=== PATIENT | female | born 1970 | race Caucasian/White ===

== ENCOUNTER 2019-09-20 12:17 | Observation (INO) | payer OTHER ==
[2019-09-20] MEDS ORDERED: SODIUM CHLORIDE 0.9% 1,000 ML with MVI, ADULT NO.4 WITH VIT K 10 ML, THIAMINE 100 MG, F... IV ONE ×4 (12:22)
[2019-09-20] MEDS ORDERED: SODIUM CHLORIDE 0.9% 500 ML 500 ML IV ONE (12:22)
--- NOTE | 2019-09-20 12:25 | ED ---
General Adult HPI - General Stated complaint: ETOH Time Seen by Provider: 09/20/19 12:17 Source: RN notes reviewed, old records reviewed - History of Present Illness Initial comments: This is a 48-year-old female presents emergency Department because she is intoxicated. Patient went to [facility] for rehabilitation but she was too intoxicated for them to accept so they called the family and since then to here [facility]. Patient has no complaints other than the fact she is drinking too much and she would like some help. Patient denies any chest pain difficulty breathing. Patient denies any abdominal pain patient denies nausea vomiting. Patient denies headache patient denies numbness weakness. Patient states she drinks at least a fifth of vodka a day. - Related Data Allergies Allergy/AdvReac Type Severity Reaction Status Date / Time nitrofurantoin Allergy Anaphylaxis Verified 09/20/19 12:49 [From Macrobid] phenytoin [From Dilantin] Allergy Anaphylaxis Verified 09/20/19 12:49 Sulfa (Sulfonamide Allergy Anaphylaxis Verified 09/20/19 12:49 Antibiotics) tetracycline Allergy Anaphylaxis Verified 09/20/19 12:49 Review of Systems ROS Statement: Those systems with pertinent positive or pertinent negative responses have been documented in the HPI. ROS Other: All systems not noted in ROS Statement are negative. General Exam - General Exam Comments Initial Comments: GENERAL: Patient is well-developed and well-nourished. Patient is nontoxic and well- hydrated and is intoxicated. ENT: Neck is soft and supple. No significant lymphadenopathy is noted. Oropharynx is clear. Moist mucous membranes. Neck has full range of motion without eliciting any pain. EYES: The sclera were anicteric and conjunctiva were pink and moist. Extraocular movements were intact and pupils were equal round and reactive to light. Eyelids were unremarkable. PULMONARY: Unlabored respirations. Good breath sounds bilaterally. No audible rales rhonchi or wheezing was noted. CARDIOVASCULAR: There is a regular rate and rhythm without any murmurs gallops or rubs. ABDOMEN: Soft and nontender with normal bowel sounds. SKIN: Skin is clear with no lesions or rashes and otherwise unremarkable. NEUROLOGIC: Patient is alert and oriented x3. Cranial nerves II through XII are grossly intact. Motor and sensory are also intact. Normal speech, volume and content. Symmetrical smile. MUSCULOSKELETAL: Normal extremities with adequate strength and full range of motion. LYMPHATICS: No significant lymphadenopathy is noted PSYCHIATRIC: Patient is too intoxicated to assess however she does deny any suicidal ideations. Course Vital Signs 09/20/19 12:23 Temperature 97.6 F Pulse Rate 73 Respiratory 16 Rate Blood Pressure 139/79 O2 Sat by Pulse 94 L Oximetry Medical Decision Making - Medical Decision Making I spoke with Dr. Peterson he agreed to admit the patient admitted the patient wrote admitting orders - Lab Data Result diagrams: 09/20/19 12:40 09/20/19 12:40 Lab Results 09/20/19 09/20/19 09/20/19 Range/Units 12:40 12:40 12:40 WBC 4.3 (3.8-10.6) k/uL RBC 3.86 (3.80-5.40) m/uL Hgb 13.6 (11.4-16.0) gm/dL Hct 39.5 (34.0-46.0) % MCV 102.4 H (80.0-100.0) fL MCH 35.3 H (25.0-35.0) pg MCHC 34.4 (31.0-37.0) g/dL RDW 14.1 (11.5-15.5) % Plt Count 209 (150-450) k/uL Neutrophils % 47 % Lymphocytes % 40 % Monocytes % 9 % Eosinophils % 1 % Basophils % 1 % Neutrophils # 2.0 (1.3-7.7) k/uL Lymphocytes # 1.7 (1.0-4.8) k/uL Monocytes # 0.4 (0-1.0) k/uL Eosinophils # 0.0 (0-0.7) k/uL Basophils # 0.0 (0-0.2) k/uL Macrocytosis Slight Sodium 145 (137-145) mmol/L Potassium 5.4 H (3.5-5.1) mmol/L Chloride 109 H (98-107) mmol/L Carbon Dioxide 24 (22-30) mmol/L Anion Gap 12 mmol/L BUN 17 (7-17) mg/dL Creatinine 0.76 (0.52-1.04) mg/dL Est GFR (CKD-EPI)AfAm >90 (>60 ml/min/1.73 sqM) Est GFR (CKD-EPI)NonAf >90 (>60 ml/min/1.73 sqM) Glucose 113 H (74-99) mg/dL Calcium 9.4 (8.4-10.2) mg/dL Total Bilirubin 0.6 (0.2-1.3) mg/dL AST 313 H (14-36) U/L ALT 224 H (9-52) U/L Alkaline Phosphatase 136 H (38-126) U/L NT-Pro-B Natriuret Pep 29 pg/mL Total Protein 8.8 H (6.3-8.2) g/dL Albumin 4.8 (3.5-5.0) g/dL Serum Alcohol 367 H* mg/dL Disposition Clinical Impression: Alcoholic intoxication Disposition: ADMITTED IP TO THIS HOSP Referrals: Nonstaff,Physician [Primary Care Provider] - 1-2 days Time of Disposition: 13:44
[2019-09-20 12:55] LABS: Basophils % (A) 1 %; Eosinophils % (A) 1 %; HCT 39.5 % (34.0-46.0); HGB 13.6 gm/dL (11.4-16.0); Lymphocytes # (A) 1.7 k/uL (1.0-4.8); Lymphocytes % (A) 40 %; MCH 35.3 pg (25.0-35.0); MCHC 34.4 g/dL (31.0-37.0); MCV 102.4 fL (80.0-100.0); Macrocytosis Slight; Mean Platelet Volume 5.5; Monocytes # (A) 0.4 k/uL (0-1.0); Monocytes % (A) 9 %; Neutrophils % (A) 47 %; Platelet Count 209 k/uL (150-450); RBC 3.86 m/uL (3.80-5.40); RDW 14.1 % (11.5-15.5); WBC 4.3 k/uL (3.8-10.6)
[2019-09-20 13:11] LABS: African American GFR (CKD) >90 (>60 ml/min/1.73 sqM); Albumin 4.8 g/dL (3.5-5.0); Anion Gap 12 mmol/L; Blood Urea Nitrogen 17 mg/dL (7-17); Calcium 9.4 mg/dL (8.4-10.2); Carbon Dioxide 24 mmol/L (22-30); Chloride 109 mmol/L (98-107); Glucose 113 mg/dL (74-99); Non-African American GFR(CKD) >90 (>60 ml/min/1.73 sqM); Sodium 145 mmol/L (137-145); Total Bilirubin 0.6 mg/dL (0.2-1.3); Total Protein 8.8 g/dL (6.3-8.2)
[2019-09-20 13:23] LABS: ALT 224 U/L (9-52); AST 313 U/L (14-36); Alcohol 367 mg/dL; Potassium 5.4 mmol/L (3.5-5.1)
[2019-09-20 13:24] LABS: Alkaline Phosphatase 136 U/L (38-126)
[2019-09-20] MEDS ORDERED: LORazepam 2 MG/ML INJ IV PRN (13:44)
[2019-09-20] MEDS ORDERED: THIAMINE 100 MG/ML 2 ML VIAL IM STA (13:44)
[2019-09-20] MEDS ORDERED: SODIUM CHLORIDE 0.9% 1,000 ML IV ONE (13:45)
[2019-09-20] MEDS ORDERED: IBUPROFEN 600 MG TAB PO PRN (14:33)
[2019-09-20] MEDS ORDERED: TEMAZEPAM 15 MG CAP PO PRN ×2 (14:34→15:48)
[2019-09-20 15:14] LABS: Prothrombin Time 10.3 sec (9.0-12.0)
[2019-09-20] MEDS: LORazepam 2 MG/ML INJ IV PRN ×2 (16:01→19:55)
[2019-09-20] MEDS ORDERED: INFLUENZA VACCINE (6 MOS+) 60 MCG/0.5 ML SYRINGE IM ONE (16:07)
[2019-09-20] MEDS ORDERED: PNEUMOCOCCAL VACC-PNEUMOVAX 23 25 MCG/0.5 ML VIAL IM ONE (16:07)
[2019-09-20] MEDS: THIAMINE 100 MG TAB PO SCH (16:35)
--- NOTE | 2019-09-20 16:42 | XR ---
EXAMINATION TYPE: XR chest 1V portable DATE OF EXAM: 09/20/2019 COMPARISON: NONE HISTORY: Heart failure Short of breath TECHNIQUE: Single frontal view of the chest is obtained. FINDINGS: Heart and mediastinum are normal. Lungs are clear. Diaphragm is normal. Bony thorax appear s normal. IMPRESSION: Normal chest. No heart failure.
--- NOTE | 2019-09-20 17:02 | HP ---
HISTORY AND PHYSICAL DATE OF SERVICE: 09/20/2019 CHIEF COMPLAINT: Alcohol intoxication. HISTORY OF PRESENT ILLNESS: This 48-year-old woman with a past medical history of multiple medical problems including C difficile, history of stroke, history of EtOH, history of nicotine dependence, being followed by primary physician in the [place] area apparently was followed by a physician in the [facility] system. The patient apparently was taken to [facility] for alcohol rehab, but however, because the patient was toxic, the patient was referred to [facility] and admitted for further evaluation and treatment. Initial alcohol level was found to be 367. AST and ALT was elevated indicating alcoholic hepatitis. The patient also had significant medical history including history of multiple hospital admissions and one admission associated with stroke during which time the patient had multiple complications including pneumonia, apparent sepsis, C difficile colitis, and the patient was in the hospital for several weeks according the family who with the patient lives. The patient also has history of brain surgery and AVM removal as well. There is no history of fever, rigors or chills. No history of headache, loss of consciousness or seizures at this time. The patient is currently conscious, but slightly tremulous. Patient also has history of previous DTs also. The patient is complaining of severe diffuse aches and pains at this time. PAST MEDICAL HISTORY: History of alcohol intake, history of brain surgery, CVA, DTs. MEDICATIONS: Home medications are: 1. Risperdal 2 mg p.o. daily. 2. Trokendi that is Topramide 50 mg p.o. daily. 3. Nicotine 14 daily. 4. Motrin 600 mg q.8h p.r.n. 5. Lopressor 50 mg p.o. b.i.d. 6. Vimpat 100 mg p.o. b.i.d. 7. Pepcid 20 mg p.o. b.i.d. 8. Lexapro 10 mg p.o. daily. 9. Vitamin B1 100 mg p.o. daily. 10. vitamins 1 p.o. daily. 11.Klor-Con 20 mEq p.o. b.i.d. 12.Magnesium oxide 400 mg p.o. b.i.d. 13.Folic acid 1 mg p.o. daily. ALLERGIES: ABILIFY, CIPRO, REGLAN, MORPHINE, MACROBID, DILANTIN, SULFONAMIDES, TETRACYCLINE. FAMILY HISTORY: No history of heart disease or strokes in the family. SOCIAL HISTORY: History of smoking and alcohol as mentioned earlier. REVIEW OF SYSTEMS: ENT: No diminished vision. No diminished hearing. CARDIOVASCULAR system: No angina or palpitations. RESPIRATORY: No cough. GI no nausea or vomiting. no dysuria. NERVOUS SYSTEM: As mentioned earlier. ALLERGY/IMMUNOLOGY: No asthma or hayfever. MUSCULOSKELETAL as mentioned earlier. HEMATOLOGY/ONCOLOGY: No history of anemia. ENDOCRINE: No history of diabetes or hypothyroidism. CONSTITUTIONAL: As mentioned earlier. DERMATOLOGY: Negative. RHEUMATOLOGY: Negative. PSYCHIATRY: As mentioned earlier. PHYSICAL EXAMINATION: GENERAL: The patient is alert and oriented times three. VITAL SIGNS: Pulse 81, blood pressure 112/71, respiration 16, temperature 97.6, pulse ox 96% on room air. HEENT is conjunctivae normal. Oral mucosa moist. NECK is no jugular venous distention. No carotid bruit. No lymph node enlargement. Cardiovascular: S1, S2 muffled. No S3, no S4. RESPIRATORY: Breath sounds diminished in the bases. No rhonchi. No crackles. ABDOMEN: Soft, nontender. No mass palpable. LEGS: No edema. No swelling. NERVOUS SYSTEM: Higher functions as mentioned. Moves all 4 limbs. Mild diffuse weakness. LYMPHATICS: No lymph nodes palpable in the neck, axillae or groin. JOINTS no active deforming arthropathy. LABS: At this time shows WBC 4.2, hemoglobin 13.2, MCV 102.4, potassium 5.4, glucose 113. AST is 313, ALT is 224, alkaline phosphatase 136 and alcohol is 367. ASSESSMENT: 1. Acute alcohol intoxication. 2. Possible early delirium tremens acute. 3. Elevated AST and ALT, possibly alcoholic hepatitis. 4. Mild hyperkalemia. 5. Increased MCV. 6. History of strokes previously. 7. History of AVM and surgery. 8. History of sepsis, pneumonia and C difficile previously. 9. History of seizure disorder. 10.History of nicotine dependence continued ongoing. 11.History of ETOH. RECOMMENDATIONS AND DISCUSSION: In this 48 -year-old woman who presented with multiple complex medical issues, we will monitor the patient closely, continue the current medications, management and symptomatic treatment. We will initiate home medications. Otherwise, I would recommend CIWA protocol. I would also recommend DT precautions and seizure precautions as well. Other than that, p.r.n. Ativan may be given as part of the CIWA protocol and symptomatic treatment. DVT prophylaxis. Once the patient is stable, we will send the patient back to [facility] re[facility]. At this time, otherwise, overall prognosis guarded because of multiple complex medical issues. Further recommendations to follow. See orders for further details. We will also obtain old records from the other hospital where the patient had multiple complications as well. as well. We will continue to monitor. See orders for details. Symptomatic treatment with pain medications also recommended. MMODL / IJN: [id number] / MTDD
[2019-09-20] MEDS: KETOROLAC 30 MG/ML 1 ML VIAL IVP SCH (19:41)
[2019-09-20 20:35] LABS: Appearance,Urine Clear (Clear); Bilirubin,Urine Negative (Negative); Blood,Urine Negative (Negative); Color,Urine Light Yellow; Glucose,Urine (UA) Negative (Negative); Ketones,Urine Negative (Negative); Leukocyte Esterase,Urine Negative (Negative); Nitrite,Urine Negative (Negative); Protein,Urine Negative (Negative); Specific Gravity,Urine 1.011 (1.001-1.035); Urobilinogen,Urine <2.0 mg/dL (<2.0)
[2019-09-20] MEDS: FAMOTIDINE 20 MG TAB PO SCH (21:22)
[2019-09-20] MEDS: MAGNESIUM OXIDE 400 MG TAB PO SCH (21:22)
[2019-09-20] MEDS: POTASSIUM CHLORIDE ER 20 MEQ TAB.ER PO SCH (21:22)
[2019-09-20] MEDS: METOPROLOL TARTRATE 50 MG TAB PO SCH (21:22)
[2019-09-20] MEDS: HEPARIN SODIUM,PORCINE 5,000 UNIT/ML 1 ML VIAL SQ SCH (21:22)
[2019-09-20] MEDS: LACOSAMIDE 50 MG TABLET PO SCH (21:26)
[2019-09-21] MEDS ORDERED: LORazepam 2 MG/ML INJ ONE (03:54)
[2019-09-21] MEDS ORDERED: KETOROLAC 30 MG/ML 1 ML VIAL ONE (03:54)
[2019-09-21] MEDS: KETOROLAC 30 MG/ML 1 ML VIAL IVP SCH (05:41)
[2019-09-21] MEDS: LORazepam 2 MG/ML INJ IV PRN ×6 (07:53→23:21)
[2019-09-21] MEDS: NICOTINE 14MG/24HR PATCH TRANSDERM SCH (07:53)
[2019-09-21] MEDS: FAMOTIDINE 20 MG TAB PO SCH ×2 (07:55→21:28)
[2019-09-21] MEDS: THIAMINE 100 MG TAB PO SCH ×2 (07:55→16:38)
[2019-09-21] MEDS: METOPROLOL TARTRATE 50 MG TAB PO SCH ×2 (07:55→21:28)
[2019-09-21] MEDS: MAGNESIUM OXIDE 400 MG TAB PO SCH ×2 (07:55→21:28)
[2019-09-21] MEDS: HEPARIN SODIUM,PORCINE 5,000 UNIT/ML 1 ML VIAL SQ SCH ×2 (07:55→21:27)
[2019-09-21] MEDS: ESCITALOPRAM 10 MG TAB PO SCH (07:56)
[2019-09-21] MEDS: POTASSIUM CHLORIDE ER 20 MEQ TAB.ER PO SCH ×2 (07:56→21:27)
[2019-09-21] MEDS: TOPIRAMATE 25 MG TAB PO SCH ×2 (07:56→21:27)
[2019-09-21] MEDS: PANTOPRAZOLE 40 MG TABLET PO SCH (07:56)
[2019-09-21] MEDS: LACOSAMIDE 50 MG TABLET PO SCH ×2 (07:56→21:30)
[2019-09-21] MEDS: risperiDONE 2 MG TAB PO SCH (07:57)
[2019-09-21 13:18] LABS: Basophils % (A) 1 %; Eosinophils % (A) 1 %; HCT 41.1 % (34.0-46.0); HGB 13.8 gm/dL (11.4-16.0); Lymphocytes % (A) 26 %; MCH 34.5 pg (25.0-35.0); MCHC 33.5 g/dL (31.0-37.0); MCV 102.9 fL (80.0-100.0); Macrocytosis Slight; Mean Platelet Volume 6.7; Monocytes # (A) 0.3 k/uL (0-1.0); Monocytes % (A) 8 %; Neutrophils # (A) 2.4 k/uL (1.3-7.7); Neutrophils % (A) 62 %; Platelet Count 161 k/uL (150-450); RDW 13.9 % (11.5-15.5); WBC 3.8 k/uL (3.8-10.6)
[2019-09-21 13:45] LABS: ALT 186 U/L (9-52); AST 230 U/L (14-36); African American GFR (CKD) >90 (>60 ml/min/1.73 sqM); Albumin 4.1 g/dL (3.5-5.0); Alkaline Phosphatase 96 U/L (38-126); Anion Gap 8 mmol/L; Blood Urea Nitrogen 16 mg/dL (7-17); Calcium 9.1 mg/dL (8.4-10.2); Carbon Dioxide 22 mmol/L (22-30); Chloride 109 mmol/L (98-107); Glucose 91 mg/dL (74-99); Non-African American GFR(CKD) >90 (>60 ml/min/1.73 sqM); Potassium 4.1 mmol/L (3.5-5.1); Sodium 139 mmol/L (137-145); Total Protein 7.5 g/dL (6.3-8.2)
[2019-09-21] MEDS: KETOROLAC 30 MG/ML 1 ML VIAL IVP PRN ×2 (15:31→21:28)
--- NOTE | 2019-09-21 18:55 | PN ---
PROGRESS NOTE DATE OF SERVICE: 09/21/2019 This 48-year-old woman admitted with alcohol intoxication has active withdrawal symptoms at this time. Apparently the patient had total health care and the patient is to be transferred elsewhere, but at this point the patient is not stable enough for transfer. The patient apparently had been checked into [facility], which is a local rehab facility. The patient is being closely monitored. The patient is on [facility] protocol. Past medical history reviewed. Review of systems could not be taken; the patient is confused. CURRENT MEDICATIONS: Reviewed. They include: 1. Lexapro 10 mg daily. 2. Pepcid 20 mg b.i.d. 3. Heparin 5000 units subcutaneously b.i.d. 4. Toradol. 5. Vimpat. 6. Ativan. 7. Magnesium oxide. 8. Lopressor. 9. Habitrol. 10.K-Dur. 11.Restoril. 12.Vitamin B1. 13.Topamax. PHYSICAL EXAMINATION: Patient is delirious, stuporous. Pulse 85, blood pressure 144/89, respiration 18, temperature 98 degrees, pulse ox 97% on room air. HEENT: Conjunctivae normal. NECK: No jugular venous distention. CARDIOVASCULAR SYSTEM: S1, S2 muffled. RESPIRATORY SYSTEM: Breath sounds diminished at the bases. A few scattered rhonchi and crackles. Expiratory wheezing also present. ABDOMEN: Soft, non-tender. No mass palpable. LEGS: No edema. No swelling. NERVOUS SYSTEM: Higher functions as mentioned earlier. Moves all 4 limbs. No focal motor or sensory deficit. LYMPHATICS: No lymph node palpable in neck, axillae or groin. SKIN: No ulcer, rash, bleeding. JOINTS: No active deforming arthropathy. LABS: WBC 3.8, sodium 139, potassium 4.1, AST 230, ALT is 186, and alcohol level is 367. ASSESSMENT: 1. Acute alcohol intoxication, present on admission. 2. Acute delirium tremens. 3. Change in mental status, acute metabolic encephalopathy secondary to delirium tremens. 4. Increased AST and ALT, possibly alcoholic hepatitis. 5. Mild hyperkalemia. 6. Increased mean corpuscular volume. 7. History of strokes previously. 8. History of AVM and surgery. 9. History of sepsis, pneumonia, Clostridium difficile previously. 10.History of seizure disorder. 11.History of nicotine dependence, continued, ongoing. 12.History of ethanol. RECOMMENDATIONS AND DISCUSSION: In this 48-year-old woman who presented with multiple complex medical issues, we will monitor the patient closely, continue the current medications, continue with symptomatic treatment. Will continue with CIWA protocol. Symptomatic treatment of the pain. Continue with Ativan p.r.n. Continue with DVT prophylaxis. Continue the rest of the medications. There is no evidence of any infection currently. However, the patient's chest x-ray was reviewed and showed no acute abnormality. Will continue to monitor. Further recommendations to follow. The patient is still confused. MMODL / IJN: [id number] /
[2019-09-22] MEDS: KETOROLAC 30 MG/ML 1 ML VIAL IVP PRN ×4 (02:43→21:40)
[2019-09-22] MEDS: LORazepam 2 MG/ML INJ IV PRN ×6 (03:27→23:42)
[2019-09-22] MEDS: NICOTINE 14MG/24HR PATCH TRANSDERM SCH (07:39)
[2019-09-22] MEDS: MAGNESIUM OXIDE 400 MG TAB PO SCH ×2 (07:40→21:41)
[2019-09-22] MEDS: PANTOPRAZOLE 40 MG TABLET PO SCH (07:40)
[2019-09-22] MEDS: TOPIRAMATE 25 MG TAB PO SCH ×2 (07:40→21:41)
[2019-09-22] MEDS: METOPROLOL TARTRATE 50 MG TAB PO SCH ×2 (07:40→21:41)
[2019-09-22] MEDS: ESCITALOPRAM 10 MG TAB PO SCH (07:40)
[2019-09-22] MEDS: HEPARIN SODIUM,PORCINE 5,000 UNIT/ML 1 ML VIAL SQ SCH ×2 (07:40→21:39)
[2019-09-22] MEDS: FAMOTIDINE 20 MG TAB PO SCH (07:40)
[2019-09-22] MEDS: THIAMINE 100 MG TAB PO SCH ×2 (07:40→16:35)
[2019-09-22] MEDS: POTASSIUM CHLORIDE ER 20 MEQ TAB.ER PO SCH ×2 (07:40→21:41)
[2019-09-22] MEDS: risperiDONE 2 MG TAB PO SCH (07:41)
[2019-09-22] MEDS: LACOSAMIDE 50 MG TABLET PO SCH ×2 (07:53→21:41)
[2019-09-22 09:38] LABS: HCT 42.1 % (34.0-46.0); HGB 14.6 gm/dL (11.4-16.0); MCH 35.4 pg (25.0-35.0); MCHC 34.7 g/dL (31.0-37.0); Macrocytosis Slight; Mean Platelet Volume 8.1; Platelet Count 138 k/uL (150-450); RBC 4.13 m/uL (3.80-5.40); WBC 3.7 k/uL (3.8-10.6)
[2019-09-22 10:05] LABS: African American GFR (CKD) >90 (>60 ml/min/1.73 sqM); Albumin 4.5 g/dL (3.5-5.0); Anion Gap 10 mmol/L; Blood Urea Nitrogen 13 mg/dL (7-17); Calcium 9.7 mg/dL (8.4-10.2); Carbon Dioxide 20 mmol/L (22-30); Chloride 108 mmol/L (98-107); Glucose 136 mg/dL (74-99); Non-African American GFR(CKD) >90 (>60 ml/min/1.73 sqM); Sodium 138 mmol/L (137-145); Total Bilirubin 1.1 mg/dL (0.2-1.3); Total Protein 8.4 g/dL (6.3-8.2)
[2019-09-22 10:20] LABS: ALT 193 U/L (9-52); AST 246 U/L (14-36); Alkaline Phosphatase 97 U/L (38-126); Potassium 4.6 mmol/L (3.5-5.1)
[2019-09-22 11:09] LABS: Basophils # (M) 0.07 k/uL (0-0.2); Eosinophils # (M) 0.15 k/uL (0-0.7); Lymphocytes # (M) 0.85 k/uL (1.0-4.8); Monocytes # (M) 0.19 k/uL (0-1.0); Neutrophils # (M) 2.44 k/uL (1.3-7.7); Neutrophils % (M) 66 %; Nucleated Red Blood Cells 0 /100 WBC (0-0); Total Cells Counted 100
[2019-09-22] MEDS: HALOPERIDOL LACTATE 5 MG/ML 1 ML VIAL IM PRN ×2 (11:15→21:40)
--- NOTE | 2019-09-22 19:59 | PN ---
PROGRESS NOTE DATE OF SERVICE: 09/22/2019 This 48-year-old woman who was admitted with alcohol intoxication and acute delirium tremens is combative and restless this morning. The patient has to be given Haldol at this time. The patient is being closely monitored. The patient is actively withdrawing. The LFTs are still elevated. Past medical history reviewed. REVIEW OF SYSTEMS: Review of systems could not be taken; the patient is combative and aggressive. CURRENT MEDICATIONS: Reviewed. They include: 1. Lexapro 10 mg p.o. daily. 2. Pepcid 20 mg b.i.d. 3. Haldol. 4. Toradol. 5. Vimpat. 6. Ativan. 7. Magnesium oxide. 8. Lopressor. 9. Protonix. 10.K-Dur. 11.Restoril. 12.Topamax. PHYSICAL EXAMINATION: Patient is alert, oriented x3. Pulse is 87, blood pressure 138/91, respirations 16, temperature 97.6, pulse ox 98% on room air. HEENT: Conjunctivae normal. Oral mucosa moist. NECK: No jugular venous distention. No carotid bruit. No lymph node enlargement. CARDIOVASCULAR SYSTEM: S1, S2 muffled. RESPIRATORY SYSTEM: Breath sounds diminished at the bases. A few scattered rhonchi. No crackles. ABDOMEN: Soft, non-tender. No mass palpable. LEGS: No edema. No swelling. NERVOUS SYSTEM: Full exam was not possible, but moves all 4 limbs. SKIN: No ulcer, rash, bleeding. G LABS: Labs at this time show WBC 3.7, hemoglobin 14.6, MCV 102. Sodium 138, potassium 4.6. ASSESSMENT: 1. Acute alcohol intoxication, present on admission. 2. Acute delirium tremens with combativeness and aggressiveness. 3. Change in mental status, acute metabolic encephalopathy secondary to delirium tremens. 4. Increased AST, ALT, possibly alcoholic hepatitis, present on admission. 5. Increased mean corpuscular volume. 6. History of strokes previously. 7. History of AVM and surgery. 8. History of sepsis, pneumonia, Clostridium difficile previously. 9. History of seizure disorder. 10.History of nicotine dependence, continued ongoing. 11.History of ethanol. RECOMMENDATIONS AND DISCUSSION: In this 48-year-old woman who presented with multiple medical issues, we will monitor the patient closely, continue the current medications, continue with symptomatic treatment. I would recommend adding IM Haldol and continue with CIWA protocol aggressively. Ativan p.r.n. Continue the rest of the medications. The patient does not have any evidence of infection currently. I would also recommend a psychiatric consultation. Once the patient is stabilized and with normal sensorium and no evidence of any withdrawals, the patient will be sent back to [facility] for continued rehab at this time, but overall prognosis is guarded. Further recommendations to follow. MMLOSL / RON: [id number] /
[2019-09-23] MEDS: LORazepam 2 MG/ML INJ IV PRN ×4 (06:17→21:03)
[2019-09-23] MEDS: POTASSIUM CHLORIDE ER 20 MEQ TAB.ER PO SCH ×2 (09:04→21:07)
[2019-09-23] MEDS: risperiDONE 2 MG TAB PO SCH (09:05)
[2019-09-23] MEDS: TOPIRAMATE 25 MG TAB PO SCH ×2 (09:05→21:07)
[2019-09-23] MEDS: ESCITALOPRAM 10 MG TAB PO SCH (09:05)
[2019-09-23] MEDS: THIAMINE 100 MG TAB PO SCH ×2 (09:05→18:04)
[2019-09-23] MEDS: PANTOPRAZOLE 40 MG TABLET PO SCH (09:05)
[2019-09-23] MEDS: MAGNESIUM OXIDE 400 MG TAB PO SCH ×2 (09:05→21:07)
[2019-09-23] MEDS: LACOSAMIDE 50 MG TABLET PO SCH ×2 (09:05→21:07)
[2019-09-23] MEDS: METOPROLOL TARTRATE 50 MG TAB PO SCH ×2 (09:05→21:07)
[2019-09-23] MEDS: NICOTINE 14MG/24HR PATCH TRANSDERM SCH (09:05)
[2019-09-23] MEDS: HEPARIN SODIUM,PORCINE 5,000 UNIT/ML 1 ML VIAL SQ SCH ×2 (09:05→21:07)
[2019-09-23] MEDS: KETOROLAC 30 MG/ML 1 ML VIAL IVP PRN ×3 (09:53→21:05)
[2019-09-23 10:00] LABS: Basophils % (A) 0 %; Eosinophils # (A) 0.1 k/uL (0-0.7); Eosinophils % (A) 2 %; HCT 38.8 % (34.0-46.0); HGB 13.6 gm/dL (11.4-16.0); Lymphocytes # (A) 1.3 k/uL (1.0-4.8); Lymphocytes % (A) 29 %; MCHC 35.1 g/dL (31.0-37.0); MCV 102.8 fL (80.0-100.0); Macrocytosis Slight; Mean Platelet Volume 6.6; Monocytes # (A) 0.3 k/uL (0-1.0); Monocytes % (A) 7 %; Neutrophils # (A) 2.8 k/uL (1.3-7.7); Neutrophils % (A) 60 %; Platelet Count 143 k/uL (150-450); RBC 3.77 m/uL (3.80-5.40); RDW 14.5 % (11.5-15.5); WBC 4.7 k/uL (3.8-10.6)
[2019-09-23 11:45] LABS: ALT 188 U/L (9-52); AST 223 U/L (14-36); African American GFR (CKD) >90 (>60 ml/min/1.73 sqM); Albumin 3.9 g/dL (3.5-5.0); Alkaline Phosphatase 93 U/L (38-126); Anion Gap 7 mmol/L; Blood Urea Nitrogen 16 mg/dL (7-17); Calcium 9.5 mg/dL (8.4-10.2); Carbon Dioxide 21 mmol/L (22-30); Chloride 112 mmol/L (98-107); Glucose 102 mg/dL (74-99); Non-African American GFR(CKD) >90 (>60 ml/min/1.73 sqM); Potassium 4.5 mmol/L (3.5-5.1); Sodium 140 mmol/L (137-145); Total Bilirubin 0.8 mg/dL (0.2-1.3); Total Protein 7.4 g/dL (6.3-8.2)
--- NOTE | 2019-09-23 22:17 | PN ---
PROGRESS NOTE DATE OF SERVICE: 09/23/2019 This 48-year-old woman was admitted with significant alcohol intoxication, also had acute delirium tremens. The patient was combative and restless and verbally abusive yesterday. The patient was given Haldol with some relief. The patient also had macrocytosis and some mild thrombocytopenia also. LFTs are still elevated. PAST MEDICAL HISTORY: Reviewed. REVIEW OF SYSTEMS: Review of systems could not be taken because the patient is confused. CURRENT MEDICATIONS: 1. Lexapro 10 mg daily. 2. Haldol p.r.n. 3. Heparin subcu b.i.d. 4. Toradol. 5. Vimpat 100 mg b.i.d. 6. Ativan 1 mg p.r.n. 7. CIWA protocol. 8. Magnesium oxide. 9. Lopressor. 10.Habitrol. 11.Protonix. 12.K-Dur. 13.Risperdal. 14.Restoril. 15.Vitamin B1. 16.Topamax. Doses are reviewed. PHYSICAL EXAM: Patient is alert, oriented x2. Pulse 89, blood pressure 148/82, respirations 16, temperature 98.2, pulse ox 98% on room air. HEENT: Conjunctivae normal. Oral mucosa moist. NECK: No jugular venous distention. No lymph node enlargement. CARDIOVASCULAR: S1, S2. RESPIRATORY: Diminished breath sounds at the bases. No, no crackles. ABDOMEN: Soft, nontender. LEGS: No swelling. NERVOUS SYSTEM: Diffusely weak. LABS: WBC 4.7, hemoglobin 13.6 and AST is 223 and ALT is 188. ASSESSMENT: 1. Acute alcohol intoxication, present on admission. 2. Acute delirium tremens with combativeness and aggressiveness. 3. Change in mental status, acute metabolic encephalopathy secondary to delirium tremens. acute. 4. Increased AST, ALT, possibly acute alcoholic hepatitis, present on admission. 5. Increased MCV. 6. History of stroke, previous history of AVM and surgery. 7. History of sepsis, pneumonia, C difficile previously. 8. History of seizure disorder. 9. History of nicotine dependence, continued, ongoing. 10.History of EtOH. RECOMMENDATIONS AND DISCUSSION: Recommend to continue current medications, monitor and symptomatic treatment. Otherwise, continue with vitamin supplements. Continue the rest of medications. DVT prophylaxis. Guarded prognosis because of multiple complex medical issues. MMODL / IJN: [id number] /
[2019-09-24] MEDS: LORazepam 2 MG/ML INJ IV PRN ×6 (01:48→23:21)
[2019-09-24] MEDS: NICOTINE 14MG/24HR PATCH TRANSDERM SCH (08:55)
[2019-09-24] MEDS: PANTOPRAZOLE 40 MG TABLET PO SCH (08:55)
[2019-09-24] MEDS: FOLIC ACID 1 MG TAB PO SCH (08:55)
[2019-09-24] MEDS: ESCITALOPRAM 10 MG TAB PO SCH (08:55)
[2019-09-24] MEDS: POTASSIUM CHLORIDE ER 20 MEQ TAB.ER PO SCH ×2 (08:55→21:20)
[2019-09-24] MEDS: MAGNESIUM OXIDE 400 MG TAB PO SCH ×2 (08:55→21:20)
[2019-09-24] MEDS: MULTIVITAMINS, THERA 1 EACH TAB PO SCH (08:55)
[2019-09-24] MEDS: HEPARIN SODIUM,PORCINE 5,000 UNIT/ML 1 ML VIAL SQ SCH ×2 (08:55→21:21)
[2019-09-24] MEDS: METOPROLOL TARTRATE 50 MG TAB PO SCH ×2 (08:55→21:20)
[2019-09-24] MEDS: TOPIRAMATE 25 MG TAB PO SCH ×2 (08:55→21:20)
[2019-09-24] MEDS: risperiDONE 2 MG TAB PO SCH (08:55)
[2019-09-24] MEDS: THIAMINE 100 MG TAB PO SCH ×2 (08:55→17:41)
[2019-09-24] MEDS: KETOROLAC 30 MG/ML 1 ML VIAL IVP PRN ×3 (09:02→21:27)
[2019-09-24] MEDS: LACOSAMIDE 50 MG TABLET PO SCH ×2 (09:03→21:21)
--- NOTE | 2019-09-24 22:39 | PN ---
PROGRESS NOTE DATE OF SERVICE: 09/24/2019 This 48-year-old woman who was admitted with multiple medical problems, including alcohol intoxication, acute delirium tremens, has to be given multiple sedatives. The patient is still receiving Ativan at significantly high dosage. Patient's sensorium has significantly improved. Patient is slightly tremulous. The orientation is much better. No chest pain. No palpitations. No fever. PHYSICAL EXAMINATION: Alert and oriented x3. Pulse is 76, blood pressure 138/80, respiration 18, temperature 98.3, pulse ox 94% on room air. HEENT: Conjunctivae normal. NECK: No jugular venous distention. CARDIOVASCULAR SYSTEM: S1, S2 muffled. RESPIRATORY SYSTEM: Breath sounds diminished at the bases. A few scattered rhonchi. No crackles. ABDOMEN: Soft, non-tender. LEGS: No edema. No swelling. NERVOUS SYSTEM: No focal deficit. LABS: WBC 4.7, hemoglobin 13.6. Sodium 140, potassium 4.5. AST is 223 and ALT is 188. ASSESSMENT: 1. Acute alcohol intoxication, present on admission. 2. Acute delirium tremens with combativeness and aggressiveness. 3. Change in mental status, acute metabolic encephalopathy secondary to delirium tremens, acute. 4. Increased AST, ALT, possibly acute alcoholic hepatitis, present on admission. 5. Increased mean corpuscular volume. 6. History of stroke. 7. Previous history of AVM and surgery. 8. History of sepsis, pneumonia, Clostridium difficile previously. 9. History of seizure disorder. 10.History of nicotine dependence, continued ongoing. 11.History of ethanol. RECOMMENDATIONS AND DISCUSSION: I recommend to continue current medications, continue with the monitoring, symptomatic treatment. Continue with CIWA protocol and Ativan. Continue with vitamin supplementations. Once the patient is stable and able to walk more steadily and possibly participate in rehab, the patient could be discharged and sent to [facility]. Further recommendations to follow. MMODL / IJN: [id number] /
[2019-09-25] MEDS: LORazepam 2 MG/ML INJ IV PRN (03:14)
[2019-09-25] MEDS: KETOROLAC 30 MG/ML 1 ML VIAL IVP PRN ×3 (03:15→14:08)
[2019-09-25 05:30] VITALS: RESP 18
[2019-09-25] MEDS: PANTOPRAZOLE 40 MG TABLET PO SCH (07:37)
[2019-09-25] MEDS: MULTIVITAMINS, THERA 1 EACH TAB PO SCH (07:37)
[2019-09-25] MEDS: LACOSAMIDE 50 MG TABLET PO SCH (07:37)
[2019-09-25] MEDS: METOPROLOL TARTRATE 50 MG TAB PO SCH (07:37)
[2019-09-25] MEDS: MAGNESIUM OXIDE 400 MG TAB PO SCH (07:37)
[2019-09-25] MEDS: ESCITALOPRAM 10 MG TAB PO SCH (07:37)
[2019-09-25] MEDS: THIAMINE 100 MG TAB PO SCH (07:37)
[2019-09-25] MEDS: risperiDONE 2 MG TAB PO SCH (07:38)
[2019-09-25] MEDS: FOLIC ACID 1 MG TAB PO SCH (07:38)
[2019-09-25] MEDS: HEPARIN SODIUM,PORCINE 5,000 UNIT/ML 1 ML VIAL SQ SCH (07:38)
[2019-09-25] MEDS: POTASSIUM CHLORIDE ER 20 MEQ TAB.ER PO SCH (07:38)
[2019-09-25] MEDS: NICOTINE 14MG/24HR PATCH TRANSDERM SCH (07:38)
[2019-09-25] MEDS: TOPIRAMATE 25 MG TAB PO SCH (07:38)
[2019-09-25] MEDS ORDERED: LORazepam 1 MG TAB PO PRN (13:54)
[2019-09-25 14:22] VITALS: BP 150/92; PULSE 68; TEMP 97
--- NOTE | 2019-09-25 17:32 | DS ---
DISCHARGE SUMMARY DATE OF SERVICE: 09/25/2019 FINAL DIAGNOSES: 1. Acute alcohol intoxication, present on admission. 2. Acute delirium tremens with combativeness and aggressiveness, present on admission, improved. 3. Change in mental status, acute metabolic encephalopathy secondary to delirium tremens. 4. Increased AST, ALT, possibly acute alcoholic hepatitis, present on admission, improving. 5. Increased mean corpuscular volume. 6. History of stroke. 7. Previous history of AVM and surgery. 8. History of sepsis, pneumonia, Clostridium difficile previously. 9. History of seizure disorder. 10.History of nicotine dependence, continued ongoing. 11.History of ethanol. DISCHARGE DISPOSITION: The patient will be discharged in stable condition with guarded prognosis. Total time taken 35 minutes. HISTORY OF PRESENT ILLNESS: This 48-year-old woman with a past medical history of multiple medical problems, as mentioned earlier, being followed by a primary physician elsewhere, was referred from [facility]. The patient had features of acute alcohol intoxication as well as some delirium tremens, treated symptomatically. Patient improved significantly. On exam, vitals are stable. CARDIOVASCULAR SYSTEM: S1, S2 muffled. ABDOMEN: Soft. NERVOUS SYSTEM: No focal deficit. The patient is stabilized at this time. Patient is medically cleared for rehab. The patient will be discharged in stable condition with guarded prognosis. DISCHARGE ADVICE AND MEDICATIONS: 1. Diet is cardiac. 2. Activity limited until followup. 3. Follow up with primary physician in 2-3 days. 4. No alcohol. 5. Continue with rehab. 6. Folic acid 1 mg p.o. daily. 7. Habitrol 14 daily. 8. Klor-Con 20 meq p.o. b.i.d. 9. Lexapro 10 mg p.o. daily. 10.Magnesium oxide 400 mg p.o. b.i.d. 11.Motrin 600 mg p.r.n. 12.Pepcid 20 mg p.o. b.i.d. 13. vitamin 1 p.o. daily. 14.Risperdal 2 mg p.o. daily. 15.Toprol-XL 50 mg p.o. b.i.d. 16.Topamax 50 mg p.o. daily. 17.Vimpat 100 mg p.o. b.i.d. 18.Vitamin B1 100 mg p.o. daily. 19.Ativan 1 mg t.i.d. p.r.n. Once again, the patient will be discharged in stable condition with guarded prognosis. MMLEANDRO / PAUL: [id number] /
== END 2019-09-25 17:02 | disposition home or self-care (01) ==
LOC: EC 12:17 → UNDOADMOB 13:45 → 4MS4W 13:45 → OBSVTOIN 09-21 13:22 → INTOOBSV 09-21 13:22 → 4MS4W 09-22 17:20 → UNDODISIN 09-25 17:02
PROVIDERS: ADMIT Hospitalist; ATTEND Hospitalist
DX: F10.221 Alcohol dependence with intoxication delirium (principal); E87.5 Hyperkalemia; D69.6 Thrombocytopenia, unspecified; F10.231 Alcohol dependence with withdrawal delirium; G31.2 Degeneration of nervous system due to alcohol; Y90.8 Blood alcohol level of 240 mg/100 ml or more; F17.210 Nicotine dependence, cigarettes, uncomplicated; Z79.899 Other long term (current) drug therapy; Z86.73 Personal history of transient ischemic attack (TIA), and cerebral infarction without residual deficits; Z86.19 Personal history of other infectious and parasitic diseases; Z87.01 Personal history of pneumonia (recurrent); Z88.1 Allergy status to other antibiotic agents; Z88.2 Allergy status to sulfonamides; Z88.8 Allergy status to other drugs, medicaments and biological substances; G40.909 Epilepsy, unspecified, not intractable, without status epilepticus
CPT/HCPCS: 96376 ×6; 96361 ×2; 96365; 96366; 96372 ×6; 96375; 99285; 36415; 83880; 80053 ×4; 85025 ×4; 85610; 81003; 71045; 90732; 90686; G0378 ×6; G0480; G0008; G0009; S4990 ×5; J2060 ×6; J1630; J1644 ×6; J3411; J1885 ×6; 80320; 96360

== ENCOUNTER 2020-03-15 21:30 | Inpatient (IN) | payer OTHER ==
--- NOTE | 2020-03-15 21:47 | ED ---
General Adult HPI - General Source: patient, EMS, RN notes reviewed, old records reviewed Mode of arrival: EMS Limitations: no limitations <Denny Ramirez - Last Filed: 03/15/20 23:14> <Wisam Heller - Last Filed: 03/16/20 01:56> - General Chief complaint: Altered Mental Status Stated complaint: Altered Mental Status - History of Present Illness Initial comments: This is a 49-year-old female with past medical history significant for alcohol abuse. Patient was at [facility] for rehabilitation. Patient has been there for 3 or 4 days according to the patient. EMS was called today because the patient was claiming that she was seeing people in the room and under her bed that weren't there and then she was very agitated walking up and down the hallway very quickly. Patient was given 2 mg of Ativan before leaving that [facility]. Patient has no complaints that she still is insistent that her son was under her bed. she denies any alcohol or drug use lately. Patient denies any physical complaints today. Patient denies headache patient denies numbness weakness. Patient denies any chest pain difficulty breathing shortest breath per patient denies any abdominal pain patient denies nausea vomiting diarrhea. (Denny Ramirez) - Related Data Home Medications Medication Instructions Recorded Confirmed Escitalopram Oxalate [Lexapro] 10 mg PO DAILY 09/20/19 09/20/19 Famotidine [Pepcid] 20 mg PO BID 09/20/19 09/20/19 Folic Acid 1 mg PO DAILY 09/20/19 09/20/19 Ibuprofen [Motrin] 600 mg PO Q8HR PRN 09/20/19 09/20/19 Lacosamide [Vimpat] 100 mg PO BID 09/20/19 09/20/19 Magnesium Oxide [Mag-Ox] 400 mg PO BID 09/20/19 09/20/19 Metoprolol Succinate [Toprol XL] 50 mg PO BID 09/20/19 09/20/19 Nicotine 14Mg/24Hr Patch [Habitrol] 1 patch TRANSDERM DAILY 09/20/19 09/20/19 Potassium Chloride [Klor-Con 20] 20 meq PO BID 09/20/19 09/20/19 Mtd-Umhc-Duiss Acid 1 cap PO DAILY 09/20/19 09/20/19 [-U Capsule (formulary)] Thiamine [Vitamin B-1] 100 mg PO DAILY 09/20/19 09/20/19 Topiramate [Trokendi Xr] 50 mg PO DAILY 09/20/19 09/20/19 risperiDONE [RisperDAL] 2 mg PO DAILY 09/20/19 09/20/19 Previous Rx's Medication Instructions Recorded LORazepam [Ativan] 1 mg PO TID PRN #10 tab 09/25/19 Allergies Allergy/AdvReac Type Severity Reaction Status Date / Time aripiprazole [From Abilify] Allergy Unknown Verified 03/15/20 21:37 ciprofloxacin [From Cipro] Allergy Unknown Verified 03/15/20 21:37 metoclopramide [From Reglan] Allergy Unknown Verified 03/15/20 21:37 morphine Allergy Unknown Verified 03/15/20 21:37 nitrofurantoin Allergy Anaphylaxis Verified 03/15/20 21:37 [From Macrobid] phenytoin [From Dilantin] Allergy Anaphylaxis Verified 03/15/20 21:37 Sulfa (Sulfonamide Allergy Anaphylaxis Verified 03/15/20 21:37 Antibiotics) tetracycline Allergy Anaphylaxis Verified 03/15/20 21:37 Review of Systems ROS Other: All systems not noted in ROS Statement are negative. <Denny Ramirez - Last Filed: 03/15/20 23:14> ROS Other: All systems not noted in ROS Statement are negative. <Wisam Heller - Last Filed: 03/16/20 01:56> ROS Statement: Those systems with pertinent positive or pertinent negative responses have been documented in the HPI. Past Medical History Past Medical History: CVA/TIA, Liver Disease, Memory Impairment, Pneumonia, Renal Disease, Seizure Disorder, Vascular Disorder Additional Past Medical History / Comment(s): AVM, cerebral aneurysm with clips, 01/29/18 encephalopathy d/t medications/renal failure and received dialysis for 3 days, R lung necrotizing pneumonia/CVA with bilateral arm weakness and swallowing difficulties which resolved and has some memory loss/sepsis/muscle wasting-went to rehab at discharge, UTIs, seizures which started in 2018, hepatitis C, alcoholism. History of Any Multi-Drug Resistant Organisms: C-DIFF Date of last positivie culture/infection: 01/31/18 MDRO Source:: stool Past Surgical History: Section, Tonsillectomy Additional Past Surgical History / Comment(s): Brain aneurysm with clips, laparoscopy d/t endometriosis. Past Anesthesia/Blood Transfusion Reactions: No Reported Reaction Past Psychological History: Anxiety, Bipolar, Depression Smoking Status: Former smoker Past Alcohol Use History: Abuse Past Drug Use History: None Reported - Past Family History Father Family Medical History: Coronary Artery Disease (CAD), Myocardial Infarction (TN) Additional Family Medical History / Comment(s): Father had a TN at the age of 51 yrs. Mother Additional Family Medical History / Comment(s): Mother has hypoglycemia. <Denny Ramirez - Last Filed: 03/15/20 23:14> General Exam Limitations: no limitations <Denny Ramirez - Last Filed: 03/15/20 23:14> - General Exam Comments Initial Comments: GENERAL: Patient is well-developed and well-nourished. Patient is nontoxic and well- hydrated and is in no acute distress. ENT: Neck is soft and supple. No significant lymphadenopathy is noted. Oropharynx is clear. Moist mucous membranes. Neck has full range of motion without eliciting any pain. EYES: The sclera were anicteric and conjunctiva were pink and moist. Extraocular movements were intact and pupils were equal round and reactive to light. Eyelids were unremarkable. PULMONARY: Unlabored respirations. Good breath sounds bilaterally. No audible rales rhonchi or wheezing was noted. CARDIOVASCULAR: There is a regular rate and rhythm without any murmurs gallops or rubs. ABDOMEN: Soft and nontender with normal bowel sounds. SKIN: Skin is clear with no lesions or rashes and otherwise unremarkable. NEUROLOGIC: Patient is alert and oriented x3. Cranial nerves II through XII are grossly intact. Motor and sensory are also intact. Normal speech, volume and content. Symmetrical smile. MUSCULOSKELETAL: Normal extremities with adequate strength and full range of motion. LYMPHATICS: No significant lymphadenopathy is noted PSYCHIATRIC: Patient still is insistent that her son was under the bed at [facility]. (Denny Ramirez) Course Vital Signs 03/15/20 03/15/20 03/15/20 21:33 21:37 22:37 Temperature 97.7 F Pulse Rate 87 85 Respiratory 20 20 22 Rate Blood Pressure 122/78 129/79 O2 Sat by Pulse 97 98 Oximetry 03/16/20 03/16/20 00:00 01:00 Temperature Pulse Rate 80 81 Respiratory 20 20 Rate Blood Pressure 123/74 145/84 O2 Sat by Pulse 97 97 Oximetry Medical Decision Making - Lab Data Result diagrams: 03/15/20 21:54 <Denny Ramirez - Last Filed: 03/15/20 23:14> - Lab Data Result diagrams: 03/15/20 21:54 03/15/20 00:55 <Wisam Heller - Last Filed: 03/16/20 01:56> - Medical Decision Making Dr. Heller will be taking over the care of this patient at 11 PM (Denny Ramirez) Patient presenting with confusion, hallucination, recent admission to rehabilitation Center for alcohol abuse. She has been sober for 3 days. Patient is confused with visual hallucinations. She has previous history of intracranial hemorrhage, head CT is performed this is negative for acute hemorr aimee, shows previous left frontal encephalomalacia. She has a normal CBC, normal urinalysis, negative alcohol. She is placed on Ativan according to CIWA protocol. She will be admitted for close monitoring. Additionally she been given thiamine and IV hydration. (Wisam Heller) - Lab Data Lab Results 03/15/20 03/15/20 03/15/20 Range/Units 00:55 21:54 21:54 WBC 4.0 (3.8-10.6) k/uL RBC 3.90 (3.80-5.40) m/uL Hgb 13.2 (11.4-16.0) gm/dL Hct 40.5 (34.0-46.0) % MCV 103.7 H (80.0-100.0) fL MCH 33.7 (25.0-35.0) pg MCHC 32.5 (31.0-37.0) g/dL RDW 12.8 (11.5-15.5) % Plt Count 169 (150-450) k/uL Neutrophils % 60 % Lymphocytes % 28 % Monocytes % 8 % Eosinophils % 1 % Basophils % 0 % Neutrophils # 2.4 (1.3-7.7) k/uL Lymphocytes # 1.1 (1.0-4.8) k/uL Monocytes # 0.3 (0-1.0) k/uL Eosinophils # 0.1 (0-0.7) k/uL Basophils # 0.0 (0-0.2) k/uL Macrocytosis Slight Sodium 138 (137-145) mmol/L Potassium 4.2 (3.5-5.1) mmol/L Chloride 107 (98-107) mmol/L Carbon Dioxide 23 (22-30) mmol/L Anion Gap 8 mmol/L BUN 12 (7-17) mg/dL Creatinine 0.96 (0.52-1.04) mg/dL Est GFR (CKD-EPI)AfAm 81 (>60 ml/min/1.73 sqM) Est GFR (CKD-EPI)NonAf 70 (>60 ml/min/1.73 sqM) Glucose 116 H (74-99) mg/dL Calcium 9.6 (8.4-10.2) mg/dL Magnesium 2.0 (1.6-2.3) mg/dL Total Bilirubin 0.6 (0.2-1.3) mg/dL AST 163 H (14-36) U/L ALT 191 H (4-34) U/L Alkaline Phosphatase 99 (38-126) U/L Total Protein 8.1 (6.3-8.2) g/dL Albumin 4.3 (3.5-5.0) g/dL Urine Color Urine Appearance (Clear) Urine pH (5.0-8.0) Ur Specific [place] (1.001-1.035) Urine Protein (Negative) Urine Glucose (UA) (Negative) Urine Ketones (Negative) Urine Blood (Negative) Urine Nitrite (Negative) Urine Bilirubin (Negative) Urine Urobilinogen (<2.0) mg/dL Ur Leukocyte Esterase (Negative) Urine HCG, Qual (Not Detectd) Urine Opiates Screen (NotDetected) Ur Oxycodone Screen (NotDetected) Urine Methadone Screen (NotDetected) Ur Propoxyphene Screen (NotDetected) Ur Barbiturates Screen (NotDetected) U Tricyclic Antidepress (NotDetected) Ur Phencyclidine Scrn (NotDetected) Ur Amphetamines Screen (NotDetected) U Methamphetamines Scrn (NotDetected) U Benzodiazepines Scrn (NotDetected) Urine Cocaine Screen (NotDetected) U Marijuana (THC) Screen (NotDetected) Serum Alcohol <10 mg/dL 03/15/20 03/15/20 03/15/20 Range/Units 23:31 23:31 23:31 WBC (3.8-10.6) k/uL RBC (3.80-5.40) m/uL Hgb (11.4-16.0) gm/dL Hct (34.0-46.0) % MCV (80.0-100.0) fL MCH (25.0-35.0) pg MCHC (31.0-37.0) g/dL RDW (11.5-15.5) % Plt Count (150-450) k/uL Neutrophils % % Lymphocytes % % Monocytes % % Eosinophils % % Basophils % % Neutrophils # (1.3-7.7) k/uL Lymphocytes # (1.0-4.8) k/uL Monocytes # (0-1.0) k/uL Eosinophils # (0-0.7) k/uL Basophils # (0-0.2) k/uL Macrocytosis Sodium (137-145) mmol/L Potassium (3.5-5.1) mmol/L Chloride (98-107) mmol/L Carbon Dioxide (22-30) mmol/L Anion Gap mmol/L BUN (7-17) mg/dL Creatinine (0.52-1.04) mg/dL Est GFR (CKD-EPI)AfAm (>60 ml/min/1.73 sqM) Est GFR (CKD-EPI)NonAf (>60 ml/min/1.73 sqM) Glucose (74-99) mg/dL Calcium (8.4-10.2) mg/dL Magnesium (1.6-2.3) mg/dL Total Bilirubin (0.2-1.3) mg/dL AST (14-36) U/L ALT (4-34) U/L Alkaline Phosphatase (38-126) U/L Total Protein (6.3-8.2) g/dL Albumin (3.5-5.0) g/dL Urine Color Light Yellow Urine Appearance Clear (Clear) Urine pH 5.5 (5.0-8.0) Ur Specific [place] 1.005 (1.001-1.035) Urine Protein Negative (Negative) Urine Glucose (UA) Negative (Negative) Urine Ketones Negative (Negative) Urine Blood Negative (Negative) Urine Nitrite Negative (Negative) Urine Bilirubin Negative (Negative) Urine Urobilinogen <2.0 (<2.0) mg/dL Ur Leukocyte Esterase Negative (Negative) Urine HCG, Qual Not Detected (Not Detectd) Urine Opiates Screen Not Detected (NotDetected) Ur Oxycodone Screen Not Detected (NotDetected) Urine Methadone Screen Not Detected (NotDetected) Ur Propoxyphene Screen Not Detected (NotDetected) Ur Barbiturates Screen Not Detected (NotDetected) U Tricyclic Antidepress Not Detected (NotDetected) Ur Phencyclidine Scrn Not Detected (NotDetected) Ur Amphetamines Screen Not Detected (NotDetected) U Methamphetamines Scrn Not Detected (NotDetected) U Benzodiazepines Scrn Detected H (NotDetected) Urine Cocaine Screen Not Detected (NotDetected) U Marijuana (THC) Screen Not Detected (NotDetected) Serum Alcohol mg/dL Disposition <Denny Ramirez - Last Filed: 03/15/20 23:14> Is patient prescribed a controlled substance at d/c from ED?: No Decision to Admit Reason: Admit from EC Decision Date: 03/16/20 Decision Time: 01:40 <Wisam Heller - Last Filed: 03/16/20 01:56> Clinical Impression: Alcohol withdrawal, Altered mental status Disposition: ADMITTED IP TO THIS [facility] Condition: Stable Referrals: Nonstaff,Physician [Primary Care Provider] - 1-2 days
[2020-03-15] MEDS ORDERED: THIAMINE 100 MG/ML 2 ML VIAL IM STA (22:22)
[2020-03-15] MEDS ORDERED: SODIUM CHLORIDE 0.9% 1,000 ML IV ONE (22:22)
[2020-03-15 22:31] LABS: Basophils % (A) 0 %; Eosinophils # (A) 0.1 k/uL (0-0.7); Eosinophils % (A) 1 %; HCT 40.5 % (34.0-46.0); HGB 13.2 gm/dL (11.4-16.0); Lymphocytes # (A) 1.1 k/uL (1.0-4.8); Lymphocytes % (A) 28 %; MCH 33.7 pg (25.0-35.0); MCHC 32.5 g/dL (31.0-37.0); MCV 103.7 fL (80.0-100.0); Macrocytosis Slight; Mean Platelet Volume 8.3; Monocytes # (A) 0.3 k/uL (0-1.0); Monocytes % (A) 8 %; Neutrophils # (A) 2.4 k/uL (1.3-7.7); Neutrophils % (A) 60 %; Platelet Count 169 k/uL (150-450); RDW 12.8 % (11.5-15.5)
[2020-03-15] MEDS ORDERED: KETOROLAC 30 MG/ML 1 ML VIAL IVP STA (22:54)
[2020-03-15] MEDS ORDERED: LORazepam 2 MG/ML INJ IV STA (23:14)
[2020-03-15 23:42] LABS: Appearance,Urine Clear (Clear); Bilirubin,Urine Negative (Negative); Blood,Urine Negative (Negative); Color,Urine Light Yellow; Glucose,Urine (UA) Negative (Negative); Ketones,Urine Negative (Negative); Leukocyte Esterase,Urine Negative (Negative); Nitrite,Urine Negative (Negative); PH, Urine 5.5 (5.0-8.0); Protein,Urine Negative (Negative); Specific Gravity,Urine 1.005 (1.001-1.035); Urobilinogen,Urine <2.0 mg/dL (<2.0)
[2020-03-15 23:57] LABS: Amphetamine Screen,Urine Not Detected (NotDetected); Barbiturate Screen,Urine Not Detected (NotDetected); Benzodiazepines Screen,Urine Detected (NotDetected); Cocaine Screen,Urine Not Detected (NotDetected); Methadone Screen, Urine Not Detected (NotDetected); Opiate Screen,Urine Not Detected (NotDetected); Oxycodone Screen, Urine Not Detected (NotDetected); Phencyclidine Screen,Urine Not Detected (NotDetected); Tricyclic Antidepressant,Urine Not Detected (NotDetected); Urn Cannabinoid Scrn Not Detected (NotDetected)
--- NOTE | 2020-03-16 00:12 | CT ---
EXAMINATION TYPE: CT brain wo con DATE OF EXAM: 03/16/2020 COMPARISON: None HISTORY: AMS CT DLP: 1111.4 mGycm Automated exposure control for dose reduction was used. There is large area of hypodensity involving the left frontal lobe consistent with encephalomalacia. There is no mass effect nor midline shift. There is no sign of intracranial hemorrhage. There is left frontal craniotomy defect. There is apparent clips from aneurysm surgery on the anterior cerebral ar bryan. Skull base is intact. Temporal bones appear intact. IMPRESSION: Left frontal lobe encephalomalacia. No acute intracranial abnormality.
[2020-03-16] MEDS ORDERED: THIAMINE 100 MG/ML 2 ML VIAL IM STA (00:34)
[2020-03-16] MEDS ORDERED: LORazepam 2 MG/ML INJ IV PRN (00:34)
[2020-03-16] MEDS ORDERED: NALOXONE 0.4 MG/ML 1 ML VIAL IV PRN (01:38)
[2020-03-16] MEDS: LORazepam 2 MG/ML INJ IV PRN ×4 (01:40→23:28)
[2020-03-16 01:53] LABS: Albumin 4.3 g/dL (3.5-5.0); Calcium 9.6 mg/dL (8.4-10.2); Potassium 4.2 mmol/L (3.5-5.1); Total Bilirubin 0.6 mg/dL (0.2-1.3); Total Protein 8.1 g/dL (6.3-8.2)
[2020-03-16] MEDS ORDERED: HALOPERIDOL LACTATE 5 MG/ML 1 ML VIAL IM ONE (06:03)
[2020-03-16] MEDS: SODIUM CHLORIDE 0.9% 1,000 ML IV SCH ×2 (09:00→20:26)
[2020-03-16] MEDS ORDERED: ZINC PO PRN (13:02)
[2020-03-16] MEDS ORDERED: CALCIUM PO PRN (13:02)
[2020-03-16] MEDS ORDERED: MAGNESIUM PO PRN (13:02)
[2020-03-16] MEDS ORDERED: THIAMINE 100 MG TAB PO SCH (13:15)
[2020-03-16] MEDS ORDERED: cloNIDine HCL 0.1 MG TAB PO PRN (16:00)
--- NOTE | 2020-03-16 17:17 | HP ---
HISTORY AND PHYSICAL CHIEF COMPLAINT: DTs. HISTORY OF PRESENT ILLNESS: This is the first known admission on this 49-year-old white female, transferred in from [place], where she was admitted several days ago. She apparently went to [facility] and she was brought here. She has been heavy drinker. She became extremely agitated and combative during the night, despite Ativan and Haldol. Now she is more stable. REVIEW OF SYSTEMS: She denies headaches, difficulty with vision or hearing, chest pain, cough, hemoptysis, TB, hypertension, murmurs, rheumatic fever, abdominal pain, hematemesis, melena, hematochezia, jaundice, hepatitis, cirrhosis, renal failure, hematuria, dysuria, frequency, urgency, diabetes, etc. Past medical history, family history personal and social histories reveal that she is not allergic to any medication. She is on numerous medications which can be found in the med rec portion of her record. She has apparently had some surgeries, but does not remember what they were. Family history, personal and social histories are noncontributory other than her alcohol history. She does not smoke. PHYSICAL EXAMINATION: Blood pressure 146/86 with a pulse of 103, respirations of 35, and she is afebrile. In general, she appeared to be well developed, well nourished, in no acute distress. Skin color is normal, skin is warm, dry. Face is flushed. Ears are clear. Eyes are normal. There is no strabismus. Neck is supple. Chest is clear to auscultation. Cardiac exam demonstrates sinus tachycardia. Abdomen is soft and there are no masses. Extremities are normal. Neurologically, she is intact. She is admitted to the hospital with diagnoses: 1. Delirium tremens. 2. Chronic alcoholism. 3. Possible bipolar depression. PLAN: 1. Bed rest. 2. IV fluids. 3. CIWA protocol. 4. Sedate as necessary. She may have to be restrained as well. 5. 6. MMODL / IJN: [id number] /
[2020-03-16] MEDS: THIAMINE 100 MG TAB PO SCH (17:33)
[2020-03-16] MEDS: NICOTINE 21MG/24HR PATCH TRANSDERM SCH (17:33)
[2020-03-16] MEDS: ACETAMINOPHEN TAB 325 MG TAB PO SCH ×3 (17:33→21:08)
[2020-03-16] MEDS: MAGNESIUM OXIDE 400 MG TAB PO SCH (17:33)
[2020-03-16] MEDS: LACOSAMIDE 50 MG TABLET PO SCH (17:34)
[2020-03-16] MEDS: PANTOPRAZOLE 40 MG TABLET PO SCH (17:34)
[2020-03-16] MEDS: METOPROLOL TARTRATE 50 MG TAB PO SCH (17:34)
[2020-03-16] MEDS: POTASSIUM CHLORIDE ER 20 MEQ TAB.ER PO SCH (17:34)
[2020-03-16] MEDS: traZODone HCL 50 MG TAB PO SCH (21:04)
[2020-03-16] MEDS: risperiDONE 2 MG TAB PO SCH (21:08)
[2020-03-16] MEDS: TOPIRAMATE 25 MG TAB PO SCH (21:20)
[2020-03-17] MEDS: ACETAMINOPHEN TAB 325 MG TAB PO SCH ×6 (03:03→21:34)
[2020-03-17] MEDS: PANTOPRAZOLE 40 MG TABLET PO SCH ×2 (05:45→16:45)
[2020-03-17] MEDS: SODIUM CHLORIDE 0.9% 1,000 ML IV SCH ×2 (05:45→18:27)
[2020-03-17] MEDS: ESCITALOPRAM 10 MG TAB PO SCH (05:45)
[2020-03-17] MEDS: METOPROLOL TARTRATE 50 MG TAB PO SCH ×2 (05:46→16:46)
[2020-03-17] MEDS: POTASSIUM CHLORIDE ER 20 MEQ TAB.ER PO SCH ×2 (05:46→16:46)
[2020-03-17] MEDS: MAGNESIUM OXIDE 400 MG TAB PO SCH ×2 (05:46→16:46)
[2020-03-17] MEDS: LACOSAMIDE 50 MG TABLET PO SCH ×2 (05:46→16:45)
[2020-03-17] MEDS: NICOTINE 21MG/24HR PATCH TRANSDERM SCH (08:30)
[2020-03-17] MEDS: THIAMINE 100 MG TAB PO SCH ×2 (08:30→16:47)
[2020-03-17] MEDS: TOPIRAMATE 25 MG TAB PO SCH ×2 (08:30→21:34)
[2020-03-17] MEDS: LORazepam 2 MG/ML INJ IV PRN ×6 (09:05→23:54)
--- NOTE | 2020-03-17 17:53 | PN ---
PROGRESS NOTE CHIEF COMPLAINT: Delirium tremens. HISTORY OF PRESENT ILLNESS: This lady is now quite lethargic and obtunded. She has had no seizures and she has had no further difficulty with DTs. PHYSICAL EXAMINATION: Vital signs are normal. Skin color is normal. Chest is clear. Cardiac exam is normal. Abdomen is soft, nontender. She is currently somewhat lethargic. IMPRESSION: 1. Delirium tremens. 2. Lethargy. 3. Alcoholism. PLAN: Hold up discharge back to [place] today. MMODL / IJN: [id number] /
[2020-03-17] MEDS: risperiDONE 2 MG TAB PO SCH (21:35)
[2020-03-17] MEDS: traZODone HCL 50 MG TAB PO SCH (21:36)
[2020-03-18] MEDS: ACETAMINOPHEN TAB 325 MG TAB PO SCH ×6 (02:06→19:59)
[2020-03-18] MEDS: LORazepam 2 MG/ML INJ IV PRN ×6 (03:24→23:01)
[2020-03-18] MEDS: MAGNESIUM OXIDE 400 MG TAB PO SCH ×2 (06:16→18:25)
[2020-03-18] MEDS: METOPROLOL TARTRATE 50 MG TAB PO SCH ×2 (06:16→18:25)
[2020-03-18] MEDS: ESCITALOPRAM 10 MG TAB PO SCH (06:16)
[2020-03-18] MEDS: PANTOPRAZOLE 40 MG TABLET PO SCH ×2 (06:17→18:25)
[2020-03-18] MEDS: LACOSAMIDE 50 MG TABLET PO SCH ×2 (06:17→18:25)
[2020-03-18] MEDS: POTASSIUM CHLORIDE ER 20 MEQ TAB.ER PO SCH ×2 (06:17→18:25)
[2020-03-18] MEDS: TOPIRAMATE 25 MG TAB PO SCH ×2 (09:20→19:59)
[2020-03-18] MEDS: THIAMINE 100 MG TAB PO SCH ×2 (09:20→18:25)
[2020-03-18] MEDS: NICOTINE 21MG/24HR PATCH TRANSDERM SCH (09:20)
[2020-03-18 12:38] LABS: Basophils % (A) 1 %; Eosinophils # (A) 0.1 k/uL (0-0.7); Eosinophils % (A) 2 %; HCT 40.1 % (34.0-46.0); HGB 12.9 gm/dL (11.4-16.0); Lymphocytes # (A) 1.6 k/uL (1.0-4.8); Lymphocytes % (A) 30 %; MCH 33.5 pg (25.0-35.0); MCHC 32.2 g/dL (31.0-37.0); MCV 103.9 fL (80.0-100.0); Macrocytosis Slight; Mean Platelet Volume 8.2; Monocytes # (A) 0.4 k/uL (0-1.0); Monocytes % (A) 7 %; Neutrophils % (A) 57 %; Platelet Count 176 k/uL (150-450); RBC 3.86 m/uL (3.80-5.40); RDW 12.9 % (11.5-15.5); WBC 5.2 k/uL (3.8-10.6)
[2020-03-18 12:55] LABS: ALT 130 U/L (4-34); AST 90 U/L (14-36); African American GFR (CKD) >90 (>60 ml/min/1.73 sqM); Albumin 3.8 g/dL (3.5-5.0); Alkaline Phosphatase 104 U/L (38-126); Anion Gap 7 mmol/L; Blood Urea Nitrogen 10 mg/dL (7-17); Calcium 9.3 mg/dL (8.4-10.2); Carbon Dioxide 22 mmol/L (22-30); Chloride 108 mmol/L (98-107); Glucose 117 mg/dL (74-99); Non-African American GFR(CKD) >90 (>60 ml/min/1.73 sqM); Potassium 4.2 mmol/L (3.5-5.1); Sodium 137 mmol/L (137-145); Total Bilirubin 0.3 mg/dL (0.2-1.3); Total Protein 7.4 g/dL (6.3-8.2)
--- NOTE | 2020-03-18 13:16 | PN ---
PROGRESS NOTE CHIEF COMPLAINT: DTs. HISTORY OF PRESENT ILLNESS: This lady is a little bit more alert, but still slightly confused. She is not ready for discharge. PHYSICAL EXAMINATION: Chest is clear. Cardiac exam is normal. She is not tremulous. IMPRESSION: 1. DTs. 2. Alcoholism. PLAN: Hold discharge for another day. MMODL / IJN: [id number] /
--- NOTE | 2020-03-18 14:47 | XR ---
EXAMINATION TYPE: XR chest 2V DATE OF EXAM: 03/18/2020 COMPARISON: 09/20/2019 HISTORY: Altered mental status TECHNIQUE: Frontal and lateral views of the chest are obtained. FINDINGS: There is no focal air space opacity, pleural effusion, or pneumothorax seen. The cardiac silhouette size is within normal limits. The osseous structures are intact. IMPRESSION: No acute cardiopulmonary process.
[2020-03-18] MEDS: traZODone HCL 50 MG TAB PO SCH (18:25)
[2020-03-18] MEDS: SODIUM CHLORIDE 0.9% 1,000 ML IV SCH ×2 (18:26→21:36)
[2020-03-18] MEDS: risperiDONE 2 MG TAB PO SCH (21:36)
[2020-03-19] MEDS: LORazepam 2 MG/ML INJ IV PRN ×4 (02:22→12:56)
[2020-03-19] MEDS: ACETAMINOPHEN TAB 325 MG TAB PO SCH ×6 (02:23→21:27)
[2020-03-19] MEDS: SODIUM CHLORIDE 0.9% 1,000 ML IV SCH ×2 (02:26→18:00)
[2020-03-19] MEDS: LACOSAMIDE 50 MG TABLET PO SCH ×2 (06:07→17:57)
[2020-03-19] MEDS: ESCITALOPRAM 10 MG TAB PO SCH (06:08)
[2020-03-19] MEDS: PANTOPRAZOLE 40 MG TABLET PO SCH ×2 (06:11→17:57)
[2020-03-19] MEDS: METOPROLOL TARTRATE 50 MG TAB PO SCH ×2 (06:11→17:57)
[2020-03-19] MEDS: MAGNESIUM OXIDE 400 MG TAB PO SCH ×2 (06:12→17:56)
[2020-03-19] MEDS: POTASSIUM CHLORIDE ER 20 MEQ TAB.ER PO SCH ×2 (06:12→17:57)
[2020-03-19] MEDS: THIAMINE 100 MG TAB PO SCH ×2 (08:11→17:56)
[2020-03-19] MEDS: TOPIRAMATE 25 MG TAB PO SCH ×2 (08:11→21:26)
[2020-03-19] MEDS: NICOTINE 21MG/24HR PATCH TRANSDERM SCH (08:11)
[2020-03-19] MEDS: ONDANSETRON 4 MG TAB PO PRN ×2 (12:55→18:00)
--- NOTE | 2020-03-19 19:59 | PN ---
PROGRESS NOTE DATE OF SERVICE: 03/19/2020. CHIEF COMPLAINT: Alcoholism and DTs. HISTORY OF PRESENT ILLNESS: This lady is doing well. She continues to request Ativan. She states she is very anxious and tremulous. Nursing staff feels that she is just familiar with the [facility] protocol and is just asking for more Ativan. [place] will come and pick her up. She was told that we have to stop the Ativan and return her to [place]. We will see if she accepts this. PHYSICAL EXAMINATION: Chest is clear. The cardiac exam is normal, sinus rhythm. Abdomen is soft, nontender. IMPRESSION: 1. Delirium tremens. 2. Alcoholism. PLAN: 1. Stop Ativan. 2. Discharge to [place] when they will come and pick her up. MMODL / IJN: [id number] /
[2020-03-19] MEDS: risperiDONE 2 MG TAB PO SCH (21:27)
[2020-03-19] MEDS: traZODone HCL 50 MG TAB PO SCH (21:27)
[2020-03-19 23:30] VITALS: RESP 16; TEMP 97.9
--- NOTE | 2020-03-19 23:38 | DS ---
DISCHARGE SUMMARY CHIEF COMPLAINT: Delirium tremens. HISTORY OF PRESENT ILLNESS AND PHYSICAL EXAM: Details of this lady's history and physical can be found in the initial workup. LABORATORY STUDIES: While she was in the hospital, she had laboratory studies, details of which can be found in the laboratory section of her chart. COURSE IN HOSPITAL: After admission, she was placed on bedrest and started intravenous fluids and treated for DTs. She remained quite tremulous for several days. She eventually started to improve. It was then noted that she was repeatedly still getting Ativan because she was stating that she was "anxious and still in DTs." She was told the Ativan would have to be stopped and then arrangements were made for her to return to [place]. FINAL DIAGNOSES: 1. Delirium tremens. 2. Chronic alcoholism. 3. Hypertension. OPERATIONS: None. CONSULTATIONS: None. She is improved. ALPESH / PAUL: [id number] /
[2020-03-20] MEDS: ACETAMINOPHEN TAB 325 MG TAB PO SCH ×3 (02:53→07:35)
[2020-03-20] MEDS: LACOSAMIDE 50 MG TABLET PO SCH (05:14)
[2020-03-20] MEDS: MAGNESIUM OXIDE 400 MG TAB PO SCH (05:15)
[2020-03-20] MEDS: POTASSIUM CHLORIDE ER 20 MEQ TAB.ER PO SCH (05:16)
[2020-03-20] MEDS: PANTOPRAZOLE 40 MG TABLET PO SCH (05:16)
[2020-03-20] MEDS: METOPROLOL TARTRATE 50 MG TAB PO SCH (05:18)
[2020-03-20] MEDS: ONDANSETRON 4 MG TAB PO PRN (05:18)
[2020-03-20] MEDS: ESCITALOPRAM 10 MG TAB PO SCH (05:19)
[2020-03-20 05:27] VITALS: BP 144/87; PULSE 57
[2020-03-20] MEDS: NICOTINE 21MG/24HR PATCH TRANSDERM SCH (07:35)
[2020-03-20] MEDS: THIAMINE 100 MG TAB PO SCH (07:37)
[2020-03-20] MEDS: TOPIRAMATE 25 MG TAB PO SCH (07:37)
--- NOTE | 2020-03-20 17:15 | PN ---
PROGRESS NOTE The patient was discharged yesterday, but will not be picked up until later today to be returned to [place]. She is doing well. Chest is clear. Cardiac exam is normal. Abdomen is soft, nontender. IMPRESSION: 1. Delirium tremens. 2. Alcoholism. PLAN: Back to [place] today. MMODL / IJN: [id number] /
== END 2020-03-20 14:12 | DRG 897 ==
LOC: EC 21:30 → 5NMEDONC 03-16 01:38 → OBSVTOIN 03-18 13:31
PROVIDERS: ADMIT Family Medicine; ATTEND Family Medicine
DX: F10.231 Alcohol dependence with withdrawal delirium (principal); Z11.59 Encounter for screening for other viral diseases; F31.9 Bipolar disorder, unspecified; G40.909 Epilepsy, unspecified, not intractable, without status epilepticus; B19.20 Unspecified viral hepatitis C without hepatic coma; I69.311 Memory deficit following cerebral infarction; F41.9 Anxiety disorder, unspecified; I10 Essential (primary) hypertension; M62.50 Muscle wasting and atrophy, not elsewhere classified, unspecified site; Z79.899 Other long term (current) drug therapy; Z87.01 Personal history of pneumonia (recurrent); Z87.440 Personal history of urinary (tract) infections; Z98.890 Other specified postprocedural states; Z86.79 Personal history of other diseases of the circulatory system; Z87.891 Personal history of nicotine dependence; Z87.448 Personal history of other diseases of urinary system; Z88.1 Allergy status to other antibiotic agents; Z88.5 Allergy status to narcotic agent; Z88.2 Allergy status to sulfonamides; Z88.8 Allergy status to other drugs, medicaments and biological substances; Z82.49 Family history of ischemic heart disease and other diseases of the circulatory system
CPT/HCPCS: 36415; 70450; 71046; 80053; 80306; 80320; 81003; 81025; 83735; 85025; 87635; 96361; 96372; 96374; 96375; 96376; 99285